=== PATIENT | female | born 1940 | race Caucasian/White ===

== ENCOUNTER 2020-06-15 21:09 | Emergency (ER) | payer MEDICARE, BC ==
[2020-06-15] MEDS ORDERED: Silver Nitrate Applicator Each TOP ONE (21:45)
--- NOTE | 2020-06-15 22:03 | EDM.PDOC ---
ED HPI GENERAL MEDICAL PROBLEM - General Chief Complaint: Lower Extremity Injury/Pain Stated Complaint: R LEG VEIN ISSUE Time Seen by Provider: 06/15/20 21:45 Source of Information: Reports: Patient History Limitations: Reports: No Limitations - History of Present Illness INITIAL COMMENTS - FREE TEXT/NARRATIVE: Patient presents for evaluation of bleeding from a right leg vein. She had been in the shower and looked down and noticed blood on the floor afterwards then returned her attention to her right leg and noticed bleeding from a vein on the anterior surface. She had a similar episode with a vein when they were home and by the time she went to their local emergency department the bleeding had stopped. Tonight, her applied a "tourniquet" to the leg to attempt to control the bleeding. The bandage still gradually became saturated and they came here. She is on regular topical high potency corticosteroids for a skin condition and that has resulted in thinning of her skin and more episodes like the 1 tonight. At this time, bleeding is controlled under a Coban pressure dressing. Onset: Sudden Location: Reports: Lower Extremity, Right Quality: Reports: Dull Severity: Mild Improves with: Reports: None Worsens with: Reports: Movement Associated Symptoms: Reports: No Other Symptoms - Related Data Allergies Allergy/AdvReac Type Severity Reaction Status Date / Time Penicillins AdvReac Other Verified 06/15/20 21:29 Sulfa (Sulfonamide AdvReac Other Verified 06/15/20 21:29 Antibiotics) Home Meds: Home Meds Calcium Carbonate [Calcium] 500 mg PO BID 06/15/20 [History] Cholecalciferol (Vitamin D3) [Vitamin D] 1 tab PO DAILY 06/15/20 [History] Multivitamin [Multivitamins] 1 tab PO DAILY 06/15/20 [History] Omeprazole 40 mg PO DAILY 06/15/20 [History] Simvastatin 40 mg PO DAILY 06/15/20 [History] Past Medical History HEENT History: Reports: Impaired Vision Cardiovascular History: Reports: High Cholesterol Gastrointestinal History: Reports: GERD Genitourinary History: Reports: None [employer] History: Reports: , Other (See Below) Musculoskeletal History: Reports: Arthritis, Osteoporosis Dermatologic History: Reports: Other (See Below) - Past Surgical History Head Surgeries/Procedures: Reports: None HEENT Surgical History: Reports: Cataract Surgery Cardiovascular Surgical History: Reports: None GI Surgical History: Reports: None Female Surgical History: Reports: None Musculoskeletal Surgical History: Reports: Other (See Below) Other Musculoskeletal Surgeries/Procedures:: left ankle Dermatological Surgical History: Reports: None Social & Family History - Tobacco Use Smoking Status *Q: Former Smoker Used Tobacco, but Quit: Yes Month/Year Tobacco Last Used: 1977 Second Hand Smoke Exposure: No - Caffeine Use Caffeine Use: Reports: Coffee - Alcohol Use Days Per Week of Alcohol Use: 7 Number of Drinks Per Day: 1 Total Drinks Per Week: 7 - Recreational Drug Use Recreational Drug Use: No Review of Systems - Review of Systems Review Of Systems: Comprehensive ROS is negative, except as noted in HPI. ED EXAM, GENERAL - Physical Exam Exam: See Below Free Text/Narrative:: This is an adult female with her leg on the bed in room 4. It is wrapped in a bandage and there is no external bleeding visible. Exam Limited By: No Limitations General Appearance: Alert Respiratory/Chest: No Respiratory Distress Cardiovascular: Regular Rate, Rhythm Peripheral Pulses: 3+: Posterior Tibial (R), Dorsalis Pedis (R) Extremities: Other (There is a slight trickle of bleeding from a very superficial anterior right leg vein at roughly the mid shaft level. With single finger pressure, bleeding is controlled but once pressure is released the bleeding resumes.) Course - Vital Signs Last Recorded V/S: Last Vital Signs Temp 36.3 C 06/15/20 21:36 Pulse 57 L 06/15/20 21:36 Resp 16 06/15/20 21:36 BP 134/71 06/15/20 21:36 Pulse Ox 95 06/15/20 21:36 - Orders/Labs/Meds Meds: Medications Discontinued Medications Generic Name Dose Route Start Last Admin Trade Name Daniel PRN Reason Stop Dose Admin Silver Nitrate 1 each 06/15/20 21:45 06/15/20 21:56 Silver Nitrate TOP 06/15/20 21:46 1 each ONETIME ONE Administration - Re-Assessments/Exams Free Text/Narrative Re-Assessment/Exam: 06/15/20 23:05 Silver nitrate was applied to the bleeding vessel and rolled back and forth over the open area. Following that, folded 2 x 2 gauze pads measuring 1/2 inch square were applied over the bleeding site with additional larger pads about it and secured with a Coban bandage. No further bleeding was noted. The bandage did not cause pain. I recommend she keep this on for 24 hours before removing. If the bleeding resumes when bandages removed she should replace it and keep it wrapped for an additional 24 hours. If anything changes with her bleeding status, she can return here. Departure - Departure Time of Disposition: 22:01 Disposition: Home, Self-Care 01 Condition: Good Clinical Impression: Bleeding from varicose vein - Discharge Information Instructions: Varicose Veins Referrals: PCP,None [Primary Care Provider] - Forms: ED Department Discharge Additional Instructions: Keep the current bandage on for 24 hours, you could remove it Friday. If the bleeding resumes when you remove the bandage, reapply it with some small squares of focused gauze like it was put on tonight and leave on for an additional 24 hours. Be cautious that you do not bump the leg and do not be overly active tomorrow as too much walking etc. could put more pressure on the vein there and cause it to rebleed. Return to ER if feeling worse in any way. Sepsis Event Note (ED) - Evaluation Sepsis Screening Result: No Definite Risk - Focused Exam Vital Signs: Vital Signs Temp Pulse Resp BP Pulse Ox 06/15/20 21:36 36.3 C 57 L 16 134/71 95 06/15/20 21:26 36.3 C 57 L 16 134/71 95
== END 2020-06-15 22:10 | disposition home or self-care (01) ==
LOC: JP.ED 21:09
DX: I83.891 Varicose veins of right lower extremity with other complications (principal); E78.00 Pure hypercholesterolemia, unspecified; K21.9 Gastro-esophageal reflux disease without esophagitis; Z87.891 Personal history of nicotine dependence; Z88.0 Allergy status to penicillin; Z88.2 Allergy status to sulfonamides; Z79.899 Other long term (current) drug therapy
CPT/HCPCS: 12001; 99283